=== PATIENT | male | born 1955 | race Caucasian/White ===

== ENCOUNTER 2024-04-19 10:27 | Outpatient (OUT) | payer MEDICARE, SELFPAY ==
[2024-04-19 11:32] LABS: Magnesium 1.6 mg/dL (1.8-2.4); Thyroid Stimulating Hormone 1.526 uIU/mL (0.358-3.740)
== END 2024-04-19 10:28 | disposition home or self-care (01) ==
PROVIDERS: Visit Provider Internal Medicine Cardiovascular Disease
DX: R00.2 Palpitations (principal)
CPT/HCPCS: 36415; 83735; 84443

== ENCOUNTER 2024-06-12 13:51 | Outpatient (OUT) | payer MEDICARE, SELFPAY ==
[2024-06-12 14:58] LABS: Magnesium 1.7 mg/dL (1.8-2.4); Thyroid Stimulating Hormone 1.263 uIU/mL (0.358-3.740)
== END 2024-06-12 13:52 | disposition home or self-care (01) ==
LOC: LAB 13:53
PROVIDERS: Visit Provider Internal Medicine Cardiovascular Disease
DX: R00.2 Palpitations (principal)
CPT/HCPCS: 36415; 83735; 84443